=== PATIENT | female | born 1950 | race Caucasian/White ===

== ENCOUNTER 2016-10-14 01:55 | Observation (INO) | payer MEDICAID ==
[2016-10-14] MEDS ORDERED: SODIUM CHLORIDE 0.9% 1,000 ML IV STA ×2 (02:51→05:27)
[2016-10-14] MEDS ORDERED: ONDANSETRON 4 MG/2 ML VIAL ONE ×2 (03:02→05:28)
[2016-10-14] MEDS ORDERED: SODIUM CHLORIDE 0.9% 1,000 ML IV ONE ×2 (03:02→05:29)
[2016-10-14] MEDS ORDERED: ONDANSETRON 4 MG/2 ML VIAL IVP STA ×2 (03:03→05:30)
[2016-10-14] MEDS ORDERED: MECLIZINE 12.5 MG TABLET PO STA ×2 (03:03→05:30)
[2016-10-14] MEDS ORDERED: MECLIZINE 12.5 MG TABLET PO ONE ×2 (03:04→05:29)
[2016-10-14] MEDS ORDERED: SODIUM CHLORIDE FLUSH 0.9% 10 ML SYRINGE IVP PRN (07:41)
[2016-10-14] MEDS ORDERED: ONDANSETRON 4 MG/2 ML VIAL IVP PRN (07:41)
[2016-10-14] MEDS ORDERED: SODIUM CHLORIDE 0.9% 1,000 ML IV SCH (08:00)
[2016-10-14] MEDS ORDERED: PROGESTERONE MICRONIZED 100 MG PO SCH (09:00)
[2016-10-14] MEDS: POLYETHYLENE GLYCOL 3350 17 GM PACKET PO SCH (10:08)
[2016-10-14] MEDS: ESTRADIOL 1 MG TABLET PO SCH ×2 (10:18→10:49)
[2016-10-14] MEDS ORDERED: ALPRAZolam 0.25 MG TABLET PO PRN (11:00)
[2016-10-14] MEDS: NS W/20 MEQ KCL 1,000 ML IV SCH ×2 (13:59→21:44)
[2016-10-14] MEDS: SODIUM CHLORIDE FLUSH 0.9% 10 ML SYRINGE IVP SCH ×2 (14:00→21:50)
[2016-10-14] MEDS: MECLIZINE 12.5 MG TABLET PO PRN (15:47)
[2016-10-15] MEDS: SODIUM CHLORIDE FLUSH 0.9% 10 ML SYRINGE IVP SCH ×2 (05:18→14:58)
[2016-10-15] MEDS: NS W/20 MEQ KCL 1,000 ML IV SCH (07:37)
[2016-10-15] MEDS: ESTRADIOL 1 MG TABLET PO SCH (07:38)
[2016-10-15] MEDS: POLYETHYLENE GLYCOL 3350 17 GM PACKET PO SCH (07:39)
[2016-10-15] MEDS: MECLIZINE 12.5 MG TABLET PO PRN ×2 (07:48→16:29)
[2016-10-15] MEDS ORDERED: SUMAtriptan 25 MG TABLET PO ONE (09:39)
[2016-10-15] MEDS ORDERED: GADOBUTROL 7.5 MMOL/7.5 ML VIAL IVP ONE (15:53)
== END 2016-10-15 18:42 | disposition home or self-care (01) ==
DX: R42 Dizziness and giddiness (principal); R11.2 Nausea with vomiting, unspecified; R26.89 Other abnormalities of gait and mobility; H55.00 Unspecified nystagmus; E03.9 Hypothyroidism, unspecified; I10 Essential (primary) hypertension; F41.9 Anxiety disorder, unspecified; E87.6 Hypokalemia; E86.0 Dehydration; R51 Headache; G47.9 Sleep disorder, unspecified; Z82.49 Family history of ischemic heart disease and other diseases of the circulatory system; Z82.3 Family history of stroke; Z63.79 Other stressful life events affecting family and household
CPT/HCPCS: 36415; 70450; 70544; 70549; 70553; 80053; 83690; 84443; 85025; 96361; 96374; 96376; 97161; 99285; A9270; A9585; G0378

== ENCOUNTER 2021-01-10 17:45 | Outpatient (CLI) | payer MEDICARE, MEDICAID ==
[2021-01-10 20:13] LABS: ALBUMIN 3.8 g/dL (3.2-5.5); ALBUMIN/GLOBULIN RATIO 1.6 (1.0-2.2); BILIRUBIN,TOTAL 0.6 mg/dL (0.2-1.0); CALCIUM 9.6 mg/dL (8.5-10.3); CREATININE 0.7 mg/dL (0.4-1.0); TOTAL PROTEIN 6.2 g/dL (6.7-8.2)
[2021-01-10 20:31] LABS: THYROID STIMULATING HORMONE < 0.08 uIU/mL (0.34-5.60)
[2021-01-10 20:32] LABS: FREE T3 5.49 pg/mL (2.5-3.9)
[2021-01-10 20:33] LABS: FREE T4 (FREE THYROXINE) 1.26 ng/dL (0.58-1.64)
--- NOTE | 2021-01-11 08:22 | XRAY Report ---
PROCEDURE: Hand 3 View RT INDICATIONS: SWELLING OF FINGER OF RT HAND TECHNIQUE: 3 views of the hand(s) acquired. COMPARISON: None FINDINGS: Bones: No fractures or dislocations. Degenerative changes of the distal interphalangeal joints are p resent with joint space narrowing and osteophytes. The third and fourth DIP joints demonstrate centra l erosions with gullwing deformities. There is mild subluxation of the DIP joint of the middle finger . Soft tissues: No suspicious soft tissue calcifications. IMPRESSION: 1. Degenerative changes of the distal interphalangeal joints consistent with osteoarthritis with eros travis osteoarthritis of the third and fourth DIP joints as described above. 2. No acute abnormality. Reviewed by: Dl Khan on 01/11/2021 8:21 AM PDT Approved by: Dl Khan on 01/11/2021 8:21 AM PDT Station ID: [id number]
--- NOTE | 2021-01-11 08:23 | XRAY Report ---
PROCEDURE: Wrist 3 View RT INDICATIONS: SWELLING OF FINGER OF RT HAND TECHNIQUE: 3 views of the wrist were acquired. COMPARISON: None FINDINGS: Bones: No fractures or dislocations. No suspicious bony lesions. No erosions or significant degene rative changes. Soft tissues: No suspicious soft tissue calcifications. IMPRESSION: No acute abnormality of the right wrist. No significant degenerative changes. Reviewed by: Dl Khan on 01/11/2021 8:22 AM PDT Approved by: Dl Khan on 01/11/2021 8:22 AM PDT Station ID: [id number]
[2021-01-12 12:49] LABS: HEPATITIS C ANTIBODY NON-REACTIVE (NON-REACTIVE)
[2021-01-12 17:16] LABS: HIV AG/AB 4TH GEN NON-REACTIVE (NON-REACTIVE)
[2021-01-13 14:21] LABS: ANA SCREEN NEGATIVE (NEGATIVE)
== END 2021-01-10 17:46 | disposition home or self-care (01) ==
LOC: DI.S 17:45
PROVIDERS: ATTEND Nurse Practitioner Family
DX: M19.041 Primary osteoarthritis, right hand (principal); R60.0 Localized edema; E03.9 Hypothyroidism, unspecified; E55.9 Vitamin D deficiency, unspecified; Z11.4 Encounter for screening for human immunodeficiency virus [HIV]; Z11.59 Encounter for screening for other viral diseases; Z12.11 Encounter for screening for malignant neoplasm of colon
CPT/HCPCS: 36415; 73110; 73130; 80053; 82306; 84439; 84443; 84481; 86038; 86803; G0475; 87389

== ENCOUNTER 2021-01-31 08:00 | Outpatient (CLI) | payer MEDICARE, MEDICAID ==
[2021-01-31 20:38] LABS: BILIRUBIN,URINE NEGATIVE (NEGATIVE); GLUCOSE, URINE (UA) NEGATIVE (NEGATIVE); KETONES,URINE (UA) NEGATIVE (NEGATIVE); LEUKOCYTE ESTERASE, URINE LARGE (NEGATIVE); NITRITE,URINE NEGATIVE (NEGATIVE); OCCULT BLOOD,URINE MODERATE (NEGATIVE); PROTEIN,URINE NEGATIVE (NEGATIVE); UROBILINOGEN,URINE 0.2 (NORMAL) E.U./dL (NORMAL)
[2021-01-31 20:51] LABS: CLARITY,URINE HAZY (CLEAR)
[2021-01-31 20:52] LABS: RBC,URINE 0-5 /HPF (0-5); WBC CLUMPS,URINE PRESENT; WBC,URINE >25 /HPF (0-5)
[2021-01-31 20:53] LABS: BACTERIA,URINE Few /HPF (None Seen); SQUAMOUS EPITHELIAL CELL,UR FEW Squamous (<= Few)
== END 2021-01-31 23:59 | disposition home or self-care (01) ==
LOC: LAB.S 08:00
PROVIDERS: ATTEND Emergency Medicine
DX: R30.0 Dysuria (principal)
CPT/HCPCS: 81001; 87086; 87181

== ENCOUNTER 2021-09-14 15:51 | Outpatient (CLI) | payer MEDICARE, MEDICAID ==
[2021-09-14 20:12] LABS: THYROID STIMULATING HORMONE < 0.08 uIU/mL (0.34-5.60)
[2021-09-14 20:14] LABS: FREE T3 4.24 pg/mL (2.5-3.9); FREE T4 (FREE THYROXINE) 0.76 ng/dL (0.58-1.64)
== END 2021-09-14 15:52 | disposition home or self-care (01) ==
LOC: LAB.S 15:51
PROVIDERS: ATTEND Nurse Practitioner Family
DX: E03.9 Hypothyroidism, unspecified (principal)
CPT/HCPCS: 36415; 84439; 84443; 84481

== ENCOUNTER 2023-10-15 12:36 | Outpatient (CLI) | payer MEDICARE, MEDICAID ==
[2023-10-15 15:42] LABS: ALBUMIN 4.1 g/dL (3.2-5.5); ALKALINE PHOSPHATASE 36 IU/L (42-121); ALT ALANINE AMINOTRANSFERASE 9 IU/L (10-60); AST ASPARTATE AMINOTRANSFERASE 18 IU/L (10-42); BILIRUBIN,DIRECT < 0.10 mg/dL (0.03-0.18); BILIRUBIN,TOTAL 0.5 mg/dL (0.2-1.0); TOTAL PROTEIN 6.6 g/dL (6.4-8.9)
[2023-10-15 15:46] LABS: THYROID STIMULATING HORMONE 2.78 uIU/mL (0.34-5.60)
== END 2023-10-15 12:37 | disposition home or self-care (01) ==
LOC: LAB.S 12:36
DX: Z51.81 Encounter for therapeutic drug level monitoring (principal); Z79.899 Other long term (current) drug therapy; E03.9 Hypothyroidism, unspecified
CPT/HCPCS: 36415; 80076; 84443